=== PATIENT | female | born 1945 | race Caucasian/White ===

== ENCOUNTER 2023-04-14 06:05 | Day surgery (SDC) | payer MEDICARE ==
[~2023-04-14 06:05] MED LIST: Ak-Dilate OPHTHALMIC*** 1.065 ML, Cyclogyl 1% OPHTH SOL 1.065 ML, GATIFLOXACIN 0.5% OPH... OP ONE; BETADINE 5% OPHTHALMIC 30 ML OP ONE; Lactated Ringers 1,000 ML IV SCH; NON-FORMULARY ITEM OP ONE; TETRACAINE 0.5% STERI-UNIT SOL OP ONE; cefUROXime sodium 0.005 GM in Sodium Chloride Flush 30 ML*** 0.5 ML IJ ONE
[2023-04-14] MEDS ORDERED: Lactated Ringers 1,000 ML IV ONE (06:31)
[2023-04-14] MEDS ORDERED: Lactated Ringers 1,000 ML IV SCH (07:00)
[2023-04-14] MEDS ORDERED: Zofran 4 MG/2 ML VIAL IV PRN (07:30)
[2023-04-14] MEDS ORDERED: ACETAZOLAMIDE 250 MG TABLET PO ONE (07:30)
[2023-04-14] MEDS ORDERED: DIPRIVAN 200 MG/20 ML IV ONE (08:35)
[2023-04-14 08:58] VITALS: RESP 16
[2023-04-14 09:04] VITALS: BP 170/94; PULSE 81; O2SAT 97
[2023-04-14 09:23] VITALS: TEMP 97.2
[2023-04-14] MEDS ORDERED: Epinephrine Preservative Free 1 MG/ML ONE (14:40)
[2023-04-14 15:10] LABS: INR 1.15 (0.8-3.0); PROTIME 12.4 SECONDS (9.4-12.5)
== END 2023-04-14 09:16 | disposition home or self-care (01) ==
LOC: SDC 06:05
PROVIDERS: ATTEND Ophthalmology
DX: H25.812 Combined forms of age-related cataract, left eye (principal); E11.9 Type 2 diabetes mellitus without complications; I10 Essential (primary) hypertension; I51.9 Heart disease, unspecified; I25.10 Atherosclerotic heart disease of native coronary artery without angina pectoris
CPT/HCPCS: 36415; 82947; 85610; 93005; 99100; C1780; J0171; J2704; A9270-GY

== ENCOUNTER 2023-05-19 06:05 | Day surgery (SDC) | payer MEDICARE ==
[~2023-05-19 06:05] MED LIST changes: +Epinephrine Preservative Free 1 MG/ML IJ ONE
[2023-05-19] MEDS ORDERED: EPINEPHRINE ABBOJECT 1 MG/10 ML IV ONE (06:06)
[2023-05-19] MEDS ORDERED: Lactated Ringers 1,000 ML IV ONE (06:47)
[2023-05-19] MEDS: TETRACAINE 0.5% STERI-UNIT SOL OP ONE ×2 (07:02→07:23)
[2023-05-19] MEDS ORDERED: DIPRIVAN 200 MG/20 ML IV ONE (08:54)
[2023-05-19] MEDS ORDERED: ACETAZOLAMIDE 250 MG TABLET PO ONE (09:00)
[2023-05-19] MEDS ORDERED: Zofran 4 MG/2 ML VIAL IV PRN (09:00)
[2023-05-19 09:18] VITALS: RESP 16
[2023-05-19 09:31] VITALS: BP 160/82; PULSE 76; TEMP 97.4; O2SAT 100
== END 2023-05-19 09:38 | disposition home or self-care (01) ==
LOC: SDC 06:05
PROVIDERS: ATTEND Ophthalmology
DX: H25.811 Combined forms of age-related cataract, right eye (principal); E11.9 Type 2 diabetes mellitus without complications
CPT/HCPCS: 82947; J0171; J2704; A9270-GY